=== PATIENT | male | born 2000 | race African-American/Black ===

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

== ENCOUNTER 2022-05-20 11:30 | Emergency (ER) | payer OTHER ==
[2022-05-20] MEDS ORDERED: Lidocaine 1% (PF) 30 ML VIAL ONE (13:46)
[2022-05-20] MEDS ORDERED: Ketorolac Tromethamine 30 MG/ML VIAL ONE (14:06)
[2022-05-20] MEDS ORDERED: HYDROcodone/Acetaminophen 5/325 mg Tablet ONE (14:07)
== END 2022-05-20 15:05 | disposition home or self-care (01) ==
LOC: CSHERS 11:30
DX: L02.211 Cutaneous abscess of abdominal wall (principal); F17.200 Nicotine dependence, unspecified, uncomplicated
CPT/HCPCS: 10060; 96372; J1885; J2001

== ENCOUNTER 2022-07-03 03:47 | Emergency (ER) | payer OTHER | END 2022-07-03 04:25 | disposition home or self-care (01) | LOC: CSHERS 03:47 | DX: L02.31 Cutaneous abscess of buttock (principal); A60.9 Anogenital herpesviral infection, unspecified; F17.200 Nicotine dependence, unspecified, uncomplicated | CPT/HCPCS: 99283 ==

== ENCOUNTER 2022-07-06 01:31 | Emergency (ER) | payer OTHER ==
[2022-07-06] MEDS ORDERED: Ipratropium/Albuterol 3 ML NEB ONE (02:36)
== END 2022-07-06 03:03 | disposition home or self-care (01) ==
LOC: CSHERS 01:31
DX: J45.901 Unspecified asthma with (acute) exacerbation (principal); F17.200 Nicotine dependence, unspecified, uncomplicated
CPT/HCPCS: 71045; J7620

== ENCOUNTER 2022-08-29 04:43 | Emergency (ER) | payer OTHER ==
[2022-08-29] MEDS ORDERED: predniSONE 20 MG TAB ONE (05:01)
[2022-08-29] MEDS ORDERED: Ipratropium/Albuterol 3 ML NEB ONE (05:01)
== END 2022-08-29 06:05 | disposition home or self-care (01) ==
LOC: CSHERS 04:43
DX: J45.901 Unspecified asthma with (acute) exacerbation (principal); F17.200 Nicotine dependence, unspecified, uncomplicated
CPT/HCPCS: 94640; 94760; J7512; J7620

== ENCOUNTER 2022-08-30 18:07 | Emergency (ER) | payer OTHER ==
[2022-08-30] MEDS ORDERED: Dexamethasone 10 MG/ML VIAL ONE (18:52)
[2022-08-30] MEDS ORDERED: Ibuprofen 200 MG TAB ONE (18:53)
== END 2022-08-30 19:45 | disposition home or self-care (01) ==
LOC: CSHERS 18:07
DX: J45.901 Unspecified asthma with (acute) exacerbation (principal); F17.200 Nicotine dependence, unspecified, uncomplicated
CPT/HCPCS: 93005; 94640; 94760; 96372; J1100; J7512; J7620

== ENCOUNTER 2022-11-17 08:47 | Emergency (ER) | payer OTHER ==
[2022-11-17 09:59] LABS: #Eosinphils 0.1 10x3/uL (0.0-0.5); #Neutrophils 6.9 10x3/uL (1.5-8.4); %Basophils 0.2 % (0.0-2.0); %Eosinophils 0.5 % (0.0-6.0); %Lymphocytes 22.8 % (18.0-47.0); %Monocytes 9.3 % (0.0-10.0); %Neutrophils 66.9 % (40.0-75.0); Hemoglobin 13.4 g/dL (13.5-17.5); Mean Corpuscular HGB CONC 32.5 g/dL (32.0-36.0); Mean Corpuscular Hemoglobin 30.6 pg (27.0-33.0); Mean Corpuscular Volume 94.1 fl (81.2-95.1); Mean Platelet Volume 9.2 fl (7.4-10.4); Platelet Count 261 10x3/uL (150-450); RBC Distribution Width 12.9 % (11.5-14.5); Red Blood Cell (RBC) Count 4.38 10x6/uL (4.32-5.72); White Blood Cell (WBC) Count 10.3 10x3/uL (3.5-10.5)
[2022-11-17 10:03] LABS: Bilirubin Neg (Negative); Blood, Urine Negative (Negative); Clarity Clear (Clear); Glucose, Urine (Dipstick) Normal (Negative); Ketone, Urine Negative (Negative); Leukocyte Negative (Negative); Nitrite Negative (Negative); Protein, Urine (Dipstick) Negative (Neg-Trace); Specific Gravity, Urine 1.015 (1.005-1.030); Urobilinogen Normal mg/dL (Less than 2)
[2022-11-17 10:10] LABS: Bacteria/HPF None Seen HPF (None Seen); CAUTI Indications for Culture Pelvic or flank pain; RBC/HPF None Seen HPF (0-3); Squamous Epithelial None Seen HPF (0-3); Urine Culture Reflex No No; WBC/HPF None Seen HPF (0-3)
[2022-11-17 11:40] LABS: Lipase 73 U/L (8-78)
[2022-11-17 11:49] LABS: ALT (SGPT) 38 U/L (8-55); AST (SGOT) 42 U/L (5-34); Albumin 4.3 g/dL (3.5-5.0); Alkaline Phosphatase 92 U/L (50-130); Anion Gap 16 mmol/L (10-20); BUN (Urea Nitrogen) 7 mg/dL (8.9-20.6); Bilirubin, Total 0.4 mg/dL (0.2-1.2); Calc. Creatinine Clearance 0 mL/min (70-130); Calcium 9.1 mg/dL (7.8-10.44); Carbon Dioxide 18 mmol/L (22-29); Chloride 109 mmol/L (98-107); Estimated GFR 125; Globulin 4.3 g/dL (2.4-3.5); Glucose 81 mg/dL (70-105); Protein, Total 8.6 g/dL (6.0-8.3); Sodium 138 mmol/L (136-145)
== END 2022-11-17 11:40 | disposition home or self-care (01) ==
LOC: CSHERS 08:47
DX: R10.9 Unspecified abdominal pain (principal); K08.89 Other specified disorders of teeth and supporting structures; F17.210 Nicotine dependence, cigarettes, uncomplicated
CPT/HCPCS: 74176; 80053; 81001; 83690; 85025

== ENCOUNTER 2022-12-14 23:11 | Emergency (ER) | payer OTHER ==
[2022-12-14] MEDS ORDERED: predniSONE 20 MG TAB ONE (23:32)
[2022-12-14] MEDS ORDERED: Ipratropium/Albuterol 3 ML NEB ONE (23:48)
== END 2022-12-15 00:24 | disposition home or self-care (01) ==
LOC: CSHERS 23:11
DX: J45.901 Unspecified asthma with (acute) exacerbation (principal); F17.200 Nicotine dependence, unspecified, uncomplicated; Z79.51 Long term (current) use of inhaled steroids
CPT/HCPCS: 71046; 94644; 94760; J7512; J7620

== ENCOUNTER 2023-01-22 11:00 | Emergency (ER) | payer OTHER | END 2023-01-22 12:51 | disposition left against medical advice (07) | LOC: CSHERS 11:00 | DX: Z53.21 Procedure and treatment not carried out due to patient leaving prior to being seen by health care provider (principal) ==

== ENCOUNTER 2023-02-13 21:38 | Emergency (ER) | payer OTHER ==
[2023-02-13] MEDS ORDERED: Dexamethasone 10 MG/ML VIAL ONE (21:57)
[2023-02-13] MEDS ORDERED: Ventolin HFA Inhaler 60 PUFF INHALER ONE (22:38)
== END 2023-02-13 22:40 | disposition home or self-care (01) ==
LOC: CSHERS 21:38
DX: J20.8 Acute bronchitis due to other specified organisms (principal); I10 Essential (primary) hypertension; R06.02 Shortness of breath; F17.210 Nicotine dependence, cigarettes, uncomplicated; Z86.16 Personal history of COVID-19
CPT/HCPCS: 71046; 93005; J1100

== ENCOUNTER 2023-05-28 18:28 | Emergency (ER) | payer OTHER ==
[2023-05-29] MEDS ORDERED: Ibuprofen 800 MG TAB ONE (00:16)
[2023-05-29] MEDS ORDERED: Acetaminophen 500 MG TAB ONE (00:16)
== END 2023-05-28 20:44 | disposition left against medical advice (07) ==
LOC: CSHERS 18:28
DX: Z53.21 Procedure and treatment not carried out due to patient leaving prior to being seen by health care provider (principal)

== ENCOUNTER 2023-05-28 23:06 | Emergency (ER) | payer OTHER | END 2023-05-29 | disposition home or self-care (01) | LOC: CSHERS 23:06 | DX: L84 Corns and callosities (principal) | CPT/HCPCS: 99283 ==